=== PATIENT | female | born 1935 | race Caucasian/White ===

== ENCOUNTER 2019-08-25 14:56 | Inpatient (IN) | payer MEDICARE, MEDICAID ==
[~2019-08-25] VITALS: Ht 170.2 cm; Wt 87.1 kg
[2019-08-25] MEDS ORDERED: FLONASE ALLERG9.9 ML NAS (16:51)
[2019-08-25] MEDS ORDERED: LOSARTAN POTASS25 M1 PO (16:53)
[2019-08-25] MEDS ORDERED: LASIX20 MG PO (16:53)
[2019-08-25] MEDS ORDERED: PLAVIX75 M1 PO (16:56)
[2019-08-25] MEDS ORDERED: K-TAB20 MEQ PO (16:57)
[2019-08-25] MEDS ORDERED: PRAVACHOL40 MG PO (16:58)
[2019-08-25] MEDS ORDERED: ELIQUIS5 M1 PO (17:00)
[2019-08-25] MEDS ORDERED: NAMENDA-5 PO (17:01)
[2019-08-25] MEDS ORDERED: DEPAKOTE SPRIN125 MG PO (17:02)
[2019-08-25] MEDS ORDERED: SALINE NASAL SP88 ML NAS (17:03)
--- NOTE | 2019-08-25 19:24 | NUR ---
A 84, admitted VOLUNTARY BY POA to 3N, under the services of ANTOINE Covarrubias MD with a diagnosis of MAJOR DEPRESSION RECURRENT WITH PSYCHOTIC FEATURES Chief complaint is AGGRESSIVE TOWARDS STAFF AND RESIDENTS. Patient arrived via wheel chair from [facility] Initial assessment completed. Vital signs taken and recorded. ANTOINE COVARRUBIAS MD notified of admission to the unit. Orders received. See assessment for past medical history, medications and allergies. Patient oriented to unit. [facility] visitation policy reviewed. Clothing/patient valuable form completed. MARTHA ENCINAS
[2019-08-25 20:00] VITALS: BP 124/66
--- NOTE | 2019-08-25 21:51 | NUR ---
HOSPITALIST CALLED [phone], UPDATED ON NEW ADMISSION AND MED REC COMPLETE, READY FOR REVIEW. STATED TO PLACE CONSULT UNDER MIKE MICHAEL. NO OTHER ORDERS RECEIVED.
[2019-08-25 22:00] VITALS: BP 124/66
--- NOTE | 2019-08-26 04:36 | NUR ---
24 HR chart check completed.
--- NOTE | 2019-08-26 04:57 | NUR ---
PATIENT CONFUSED. UNABLE TO PROVIDE ASSESSMENT INFORMATION AND SIGN FORMS DUE TO COGNITION, SKIN ASSESSMENT COMPLETED. ALERT AND VERBAL. AT PRESENT WAS COOPERASTIVE WITH CARE. AMBULATORY AND CONTINENT.
--- NOTE | 2019-08-26 05:28 | NUR ---
PATIENT SLEPT MORE THAN 7 HOURS LAST NIGHT.
--- NOTE | 2019-08-26 06:48 | NUR ---
ADVISED DR MALONE THAT PT HAS VOMITED AGAIN EVEN AFTER RECEIVING IM PRN ZOFRAN PER DR MALONE MOVE THE PT TO MEDICAL FLOOR, MONITORED, DX:INTRACTABLE N/V AND ABD PAIN, DR. STEVENS. 0652- SPOKE WITH [facility] AND RECEIVED ORDERS TO CONTINUE ALL PSYCH MEDS BUT HOLD DEPAKOTE UNTIL SEEN BY MEDICAL. 0656- SPOKE WITH DR. MALONE AND ADVISED THAT MEDICAL MEDS NEED TO BE COMPLETED TO FINISH DISCHARGE. 58-SPOKE WITH 4TH FLOOR AND ADVISED THAT NURSE WILL CALL WHEN READY FOR PT TO BE BROUGHT UP.
[2019-08-26 07:34] LABS: BASO # 0.1 10*3/uL (0.0-0.1); BASO % 0.8 % (0.0-1.0); EOS # 0.2 10*3/uL (0.0-0.4); EOS % 2.6 % (1.0-4.0); HEMATOCRIT 39.9 % (37.0-47.0); HEMOGLOBIN 12.6 g/dl (12.0-16.0); LYMPH # 2.6 10*3/uL (1.3-4.4); LYMPH % 35.1 % (27.0-41.0); MEAN CELL VOLUME 91.5 fl (81.0-99.0); MEAN CORPUSCULAR HGB 28.9 pg (27.0-31.0); MEAN CORPUSCULAR HGB CONC 31.6 g/dl (33.0-37.0); MEAN PLATELET VOLUME 11.5 fl (9.6-12.3); MONO # 0.7 10*3/uL (0.1-1.0); MONO % 8.9 % (3.0-9.0); NEUT # 3.8 10*3/uL (2.3-7.9); NEUT % 52.3 % (47.0-73.0); PLATELET COUNT AUTOMATED 205 10*3/uL (130-400); RED BLOOD COUNT 4.36 10*6/uL (4.10-5.10); WHITE BLOOD COUNT 7.3 10*3/uL (4.8-10.8)
[2019-08-26 07:53] VITALS: BP 137/61
[2019-08-26 07:59] LABS: ALBUMIN 3.4 gm/dl (3.1-4.5); ALKALINE PHOSPHATASE 66 U/L (45-117); BUN 27 mg/dl (7-24); CHLORIDE 110 mmol/L (98-107); CHOLESTEROL 150 mg/dL (<200); CREATININE 0.97 mg/dL (0.55-1.02); HDL CHOLESTEROL 62 mg/dl (40-60); LDL CHOLESTEROL 76 mg/dL (9-159); POTASSIUM 4.2 mmol/L (3.5-5.1); SGOT/AST 23 IU/L (3-35); SGPT/ALT 19 U/L (12-78); SODIUM 143 mmol/L (136-145); TOTAL PROTEIN 6.9 gm/dL (6.4-8.2); TRIGLYCERIDES 61 mg/dl (<150); VLDL CHOLESTEROL 12 mg/dL (6-40)
--- NOTE | 2019-08-26 08:08 | NUR ---
DR. BLACKBURN ON UNIT TO ASSESS PT, UPDATE PROVIDED.
[2019-08-26 08:09] LABS: VALPROIC ACID (DEPAKENE) 76.3 ug/ml (50-100)
[2019-08-26 08:40] LABS: VITAMIN D, 25-HYDROXY 83.2 ng/mL (30-100)
[2019-08-26 10:08] LABS: BILIRUBIN NEGATIVE (NEGATIVE); BLOOD NEGATIVE (NEGATIVE); CLARITY SL CLOUDY (CLEAR); COLOR YELLOW (YELLOW); GLUCOSE NEGATIVE (NEGATIVE); KETONE TRACE (NEGATIVE); LEUKO ESTERASE 3+ (NEGATIVE); NITRITE NEGATIVE (NEGATIVE); SPECIFIC GRAVITY 1.025 (1.005-1.030); UROBILINOGEN 0.2 E.U./dl (0.2-1.0)
--- NOTE | 2019-08-26 10:14 | NUR ---
MSG LEFT FOR GALINA GUTIERREZ RE: PT NEW ADMISSION
[2019-08-26 10:42] LABS: WBC 31-40 wbc/hpf (0-5)
[2019-08-26 10:43] LABS: BACTERIA 1+; EPITHELIAL CELLS 21-30; RBC 0-2 rbc/hpf (0-2)
--- NOTE | 2019-08-26 10:54 | NUR ---
SPOKE WITH DR. MALONE AT [phone] RE: PT UA RESULTS AND PER HE WILL TAKE A LOOK.
--- NOTE | 2019-08-26 11:56 | NUR ---
AM GROUP/EXERCISE/MUSIC/GAME PT ATTENDED GROUP BUT UNABLE TO PARTICIPATE DUE TO LEVELS OF COGNITION. PT RELAXING NEXT TO MHW AND KEPT TO SELF. PT NEEDS ACTIVITY ASSESSMENT COMPLETED. THIS STAFF WILL COMPLETE ASSESSMENT TODAY AND WILL CONTINUE TO ENCOURAGED PT TO ATTEND AND PARTICIPATE IN FUTURE GROUP SESSIONS TO BEST OF PT ABILITY.
--- NOTE | 2019-08-26 12:50 | NUR ---
P: PT RESISITIVE WITH CARE, YELLING OUT WITH SHOWER, REQUIRING 2 STAFF ASSIST FOR CARE AT THIS TIME. PT ANXIOUS AT TIMES. I: PROVIDE EMOTIONAL SUPPORT AND 1:1 FOR PT TO VOICE FEELINGS, PROVIDE REDIRECTION, REAPPROACH NEEDED, UTILIZE 2 STAFF MEMBERS FOR CARE NEEDED. R: PT ALERT TO PERSON ONLY, CONFUSION AND SHORT TERM MEMORY DEFICITS NOTED PER PT BASELINE. PT CALM. PT MED COMPLIANT WITH MINIMAL DIFFICULTY. PT CALMED ONCE CARE COMPLETED. NO HALLUCINATIONS OR DELUSIONS NOTED AT THIS TIME. PT AMBULATORY THROUGHOUT UNIT, GAIT STEADY. PT CONTINENT OF BOWEL AND BLADDER, EPISODES OF INCONTINENCE NOTED, CARE PROVIDED NEEDED. NO SUICIDAL THOUGHTS OR BEHAVIORS NOTED. P: PROVIDE EMOTIONAL SUPPORT AND 1:1 FOR PT TO VOICE FEELINGS, ENCOURAGE MED COMPLIANCE, UTILIZE 2 STAFF MEMBERS FOR CARE NEEDED, REAPPROACH NEEDED. RE-ORIENT AND PRESENT REALITY NEEDED.
--- NOTE | 2019-08-26 15:52 | NUR ---
PM GROUP/MUSIC/CRAFTS PT CHOSE NOT TO ATTEND BUT TO REMAIN IN BED SLEEPING AT THIS TIME. PT WILL CONTINUE TO BE ENOCURAGED TO ATTEND FUTURE GROUP SESSIONS AND PARTICIPATE TO BEST OF ABILITY.
--- NOTE | 2019-08-26 16:41 | NUR ---
STAFF ENTERED PT ROOM TO TOILET HER AND GET HER UP FOR DINNER AND OBSERVED HER TO HAVE A SMALL EMESIS OF UNDIGESTED FOOD. PT ALSO INCONTINENT OF BOWEL AND BLADDER. STAFF PROVIDED INCONTINENCE CARE. WILL CONTINUE TO MONITOR PT AND UPDATE
--- NOTE | 2019-08-26 16:48 | NUR ---
ATTEMPTED TO CONTACT DR. BLACKBURN'S TEAM AT [phone], NO ANSWER WILL TRY AGAIN.
--- NOTE | 2019-08-26 17:02 | NUR ---
PT HAD SECOND EMESIS OF UNDIGESTED FOOD. DR. MALONE RETURNED CALL AND UPDATED ON PT HAVING 2 SMALL EMESIS OF UNDIGESTED FOOD AND [address] MALONE HE WILL TAKE A LOOK AT HER CHART AND ORDER SOMETHING.
--- NOTE | 2019-08-26 17:27 | NUR ---
SPOKE WITH DR MALONE AT [phone] RE: PT VOMITING X4 TIMES. PER DR. MALONE PUT IN AN ORDER FOR ZOFRAN 4MG PO Q6H PRN FOR NAUSEA AND VOMITING. CONVERSATION WITNESSED BY 2ND RN VINEET JENSEN.
--- NOTE | 2019-08-26 17:27 | NUR ---
PSYCHOSOCIAL HX COMPLETED THIS DATE, CLIENT IS A POOR HISTORIAN.
--- NOTE | 2019-08-26 17:55 | NUR ---
SPOKE WITH DR KIRA YOUNGED THAT PT HAD ANOTHER EMESIS, VOMITING UP THE ZOFRAN AND IS PALE IN COLOR AT THIS TIME. PER . CHANGE ZOFRAN TO IM AND HE WILL BE UP TO SEE HER.
--- NOTE | 2019-08-26 17:57 | NUR ---
DR MALONE ON UNIT TO ASSESS PT, UPDATE PROVIDED.
--- NOTE | 2019-08-26 18:11 | NUR ---
IM ZOFRAN ADMINISTERED PER DR. MALONE'S ORDERS. PER DR. MALONE IF IM ZOFRAN IS INEFFECTIVE PLEASE CALL HIM. WILL CONTINUE TO MONITOR PT
--- NOTE | 2019-08-26 18:13 | NUR ---
LAB ON UNIT FOR LAB DRAW. PT TOLERATED WITHOUT ISSUE.
--- NOTE | 2019-08-26 18:20 | NUR ---
SPOKE WITH JULIAN AT [facility] TO INQUIRE IF THERE ARE ANY ISSUES AT THE FACILITY WITH VOMITING AND DIARRHEA. PER NURSE, THEY HAVE NOT HAD ANY ISSUES RECENTLY AND THIS IS OUT OF CHARACTER FOR THE PT.
--- NOTE | 2019-08-26 18:34 | NUR ---
SPOKE WITH EKG AND ADVISED THAT I HAVE STAT EKG ORDER FOR THIS PT, PER CLAY HE IS ON HIS WAY TO ER FOR ONE AND HE WILL BE RIGHT UP.
--- NOTE | 2019-08-26 18:37 | NUR ---
DR. MALONE CALLED FOR UPDATE, ADVISED THAT PT RECEIVED IM ZOFRAN AND OF RIGHT NOW, HAS HAD NO FURTHER EMESIS. PER DR. MALONE UPDATE HIM IF THERE ARE FURTHER ISSUES. WILL CONTINUE TO MONITOR PT.
[2019-08-26 18:39] LABS: BUN 28 mg/dl (7-24); CHLORIDE 112 mmol/L (98-107); CREATININE 0.95 mg/dL (0.55-1.02); LIPASE 79 U/L (73-393); POTASSIUM 3.7 mmol/L (3.5-5.1); SODIUM 143 mmol/L (136-145); TROPONIN I < 0.015 ng/ml (<0.045)
--- NOTE | 2019-08-26 18:44 | NUR ---
DR. YU ANSWERING FOR DR. MALONE ADVISED THAT PT SOME OF PTS LABS ARE IN FOR REVIEW. PER DR. YU HE WILL LET DR. MALONE KNOW.
[2019-08-26] MEDS ORDERED: EXELON13.3 MG/21 TD (18:54)
[2019-08-26] MEDS ORDERED: CELEXA10 MG PO (18:55)
[2019-08-26] MEDS ORDERED: NAMENDA-5 PO (18:55)
--- NOTE | 2019-08-26 19:03 | NUR ---
MESSAGE LEFT FOR POA AND ADVISED THAT PT IS BEING MOVED TO THE MEDICAL UNIT FOR NAUSEA AND VOMITING. SHE CAN CALL THE U FOR FURTHER INFO OR THE 4TH FLOOR FOR AN UPDATE.
--- NOTE | 2019-08-26 19:39 | NUR ---
PT DISCHARGED TO [facility], ESCORTED BY 2 [facility]. PT OFF THE FLOOR AT 1927. NURSE TO NURSE REPORT GIVEN TO FREDY.
== END 2019-08-26 19:11 | disposition short-term general hospital (02) | DRG 885 ==
LOC: 3N 14:56
PROVIDERS: Internal Medicine; ADMIT Psychiatry & Neurology Psychiatry
DX: F33.3 Major depressive disorder, recurrent, severe with psychotic symptoms (principal); I50.22 Chronic systolic (congestive) heart failure; I25.10 Atherosclerotic heart disease of native coronary artery without angina pectoris; I11.0 Hypertensive heart disease with heart failure; E03.9 Hypothyroidism, unspecified; I48.91 Unspecified atrial fibrillation; G30.9 Alzheimer's disease, unspecified; F02.80 Dementia in other diseases classified elsewhere, unspecified severity, without behavioral disturbance, psychotic disturbance, mood disturbance, and anxiety; E78.5 Hyperlipidemia, unspecified; I25.5 Ischemic cardiomyopathy; E55.9 Vitamin D deficiency, unspecified; H91.13 Presbycusis, bilateral; Z95.1 Presence of aortocoronary bypass graft; Z79.01 Long term (current) use of anticoagulants; Z79.899 Other long term (current) drug therapy; Z95.5 Presence of coronary angioplasty implant and graft; Z86.73 Personal history of transient ischemic attack (TIA), and cerebral infarction without residual deficits; Z85.828 Personal history of other malignant neoplasm of skin; Z88.8 Allergy status to other drugs, medicaments and biological substances; Z80.9 Family history of malignant neoplasm, unspecified; Z82.49 Family history of ischemic heart disease and other diseases of the circulatory system

== ENCOUNTER 2019-08-26 19:03 | Inpatient (IN) | payer MEDICARE, MEDICAID ==
[~2019-08-26] VITALS: Ht 170.1 cm; Wt 86.7 kg
[~2019-08-26 19:03] MED LIST: CELEXA10 MG PO; DEPAKOTE SPRIN125 MG PO; ELIQUIS5 M1 PO; EXELON13.3 MG/21 TD; FLONASE ALLERG9.9 ML NAS; K-TAB20 MEQ PO; LASIX20 MG PO; LOSARTAN POTASS25 M1 PO; NAMENDA-5 PO; PLAVIX75 M1 PO; PRAVACHOL40 MG PO; SALINE NASAL SP88 ML NAS
[2019-08-26 19:30] VITALS: BP 153/73
--- NOTE | 2019-08-26 19:30 | NUR ---
A 84, admitted to , under the services of FLORES Landa DO with a diagnosis of ABDOMINAL PAIN,NAUSEA,VOMITING. Chief complaint is NAUSEA AND VOMITING. Patient arrived via bed from [place]. Monitor applied. Initial assessment completed. Vital signs taken and recorded. FLORES LANDA DO notified of admission to the unit. Orders received. See assessment for past medical history, medications and allergies. Patient and/or family oriented to unit. [facility] visitation policy reviewed. Clothing/patient valuable form completed. FREDY NEWTON
--- NOTE | 2019-08-26 22:30 | NUR ---
IV started left antecubital with #22 protective cath after 0 attempts. Site prepped with Chloroprep. Sterile dressing applied. Patient tolerated procedure well. IV infusing at 100 cc/hr. FREDY NEWTON
--- NOTE | 2019-08-26 23:59 | NUR ---
PT RESTING IN BED AT THIS TIME. RESPIRATIONS EASY AND UNLABORED ON ROOM AIR. NO S/S DISTRESS NOTED. NO S/S OF N/V AT THIS TIME. WILL CONTINUE TO MONITOR. CALL LIGHT IN REACH.
[2019-08-27] VITALS: BP 159/87
--- NOTE | 2019-08-27 04:54 | NUR ---
24 HR chart check completed.
[2019-08-27 06:42] LABS: BASO % 0.3 % (0.0-1.0); HEMATOCRIT 39.7 % (37.0-47.0); HEMOGLOBIN 12.7 g/dl (12.0-16.0); LYMPH # 1.5 10*3/uL (1.3-4.4); LYMPH % 13.6 % (27.0-41.0); MEAN CELL VOLUME 92.3 fl (81.0-99.0); MEAN CORPUSCULAR HGB 29.5 pg (27.0-31.0); MEAN PLATELET VOLUME 11.7 fl (9.6-12.3); MONO # 0.5 10*3/uL (0.1-1.0); MONO % 4.8 % (3.0-9.0); NEUT % 80.8 % (47.0-73.0); PLATELET COUNT AUTOMATED 199 10*3/uL (130-400); WHITE BLOOD COUNT 11.1 10*3/uL (4.8-10.8)
--- NOTE | 2019-08-27 06:55 | NUR ---
PT RESTING IN BED. RESPIRATIONS EASY AND UNLABORED ON ROOM AIR. POX WNL. IV FLUIDS INFUSING PER ORDERS. IV SITE IS PATENT. DRESSING C/D/I. WILL CONTINUE TO MONITOR. CALL LIGHT IN REACH.
[2019-08-27 07:11] LABS: BUN 24 mg/dl (7-24); CHLORIDE 112 mmol/L (98-107); CREATININE 0.77 mg/dL (0.55-1.02); PHOSPHOROUS 3.6 mg/dL (2.5-4.9); POTASSIUM 4.1 mmol/L (3.5-5.1); SODIUM 144 mmol/L (136-145)
--- NOTE | 2019-08-27 07:47 | NUR ---
24 HR chart check completed.
[2019-08-27 08:00] VITALS: BP 149/75
[2019-08-27 12:00] VITALS: BP 151/77
--- NOTE | 2019-08-27 13:47 | NUR ---
Spoke with Faustina regarding U consult.
--- NOTE | 2019-08-27 14:29 | NUR ---
Patient is refusing to drink oral contrast.
--- NOTE | 2019-08-27 14:38 | NUR ---
Notified Dr. Dooley of patients refusal to drink contrast and my many failed attempts. Per physician CT scan will be done with out contrast. CT was notified.
[2019-08-27 16:00] VITALS: BP 133/59
--- NOTE | 2019-08-27 17:29 | NUR ---
Patients daughter got her to eat a popsicle.
--- NOTE | 2019-08-27 18:15 | NUR ---
Patients daughter said she ate 1/2 jello, small amount of sherbert and drank her coke. Patient tolerated well. No c/o nausea/vomitting.
--- NOTE | 2019-08-27 19:41 | NUR ---
PATIENT RESTING IN BED WATCHING TV. REORIENTED TO TIME AND PLACE. IV INFUSING PER ORDER. BED IN LOWEST POSITION, BED ALARM ON, CALL LIGHT IN REACH
[2019-08-27 20:00] VITALS: BP 149/56
[2019-08-28] VITALS: BP 150/48
[2019-08-28 06:31] LABS: BASO # 0.1 10*3/uL (0.0-0.1); BASO % 0.6 % (0.0-1.0); EOS # 0.1 10*3/uL (0.0-0.4); EOS % 0.9 % (1.0-4.0); HEMATOCRIT 36.9 % (37.0-47.0); HEMOGLOBIN 11.5 g/dl (12.0-16.0); LYMPH # 2.6 10*3/uL (1.3-4.4); LYMPH % 24.7 % (27.0-41.0); MEAN CELL VOLUME 93.7 fl (81.0-99.0); MEAN CORPUSCULAR HGB 29.2 pg (27.0-31.0); MEAN CORPUSCULAR HGB CONC 31.2 g/dl (33.0-37.0); MEAN PLATELET VOLUME 11.6 fl (9.6-12.3); MONO # 1.1 10*3/uL (0.1-1.0); MONO % 10.2 % (3.0-9.0); NEUT # 6.6 10*3/uL (2.3-7.9); NEUT % 63.3 % (47.0-73.0); PLATELET COUNT AUTOMATED 178 10*3/uL (130-400); RED BLOOD COUNT 3.94 10*6/uL (4.10-5.10); RED CELL DISTRI WIDTH 14.1 % (0-14.5); WHITE BLOOD COUNT 10.5 10*3/uL (4.8-10.8)
[2019-08-28 06:40] LABS: ALBUMIN 3.1 gm/dl (3.1-4.5); ALKALINE PHOSPHATASE 59 U/L (45-117); BUN 24 mg/dl (7-24); CHLORIDE 115 mmol/L (98-107); CREATININE 0.95 mg/dL (0.55-1.02); POTASSIUM 3.6 mmol/L (3.5-5.1); SGOT/AST 27 IU/L (3-35); SGPT/ALT 24 U/L (12-78); SODIUM 148 mmol/L (136-145); TOTAL PROTEIN 6.4 gm/dL (6.4-8.2)
[2019-08-28 08:00] VITALS: BP 144/86
--- NOTE | 2019-08-28 08:30 | NUR ---
PATIENT AWAKE, ALERT, ORIENTED. DENIES ANY NEEDS AT THIS TIME. NPO FOR US LIVER. DENIES NAUSEA/VOMITING THIS AM. LUNGS CLEAR. ROOM AIR. ABD SOFT & NONTENDER. CALL LIGHT IS WITHIN REACH.
[2019-08-28 12:00] VITALS: BP 135/55
--- NOTE | 2019-08-28 13:04 | NUR ---
PT UNABLE TO ANSWER QUESTIONS, NO FAMILY AT BEDSIDE. PT WAS ADMITTED FROM U TO MEDICAL SIDE. PT IS FROM [facility]. WILL CONTINUE TO FOLLOW.
--- NOTE | 2019-08-28 13:45 | NUR ---
SPEECH PATHOLOGY Orders for swallowing evaluation received however since that time patient has been transferred to the medical floor with abdominal pain, nausea and vomiting. New orders will need to be obtained for swallowing eval. to be completed. Thank you for this referral. [facility]
[2019-08-28] MEDS ORDERED: METRONIDAZOLE500 M1 PO (15:06)
[2019-08-28] MEDS ORDERED: CIPROFLOXACIN250 MG PO (15:06)
[2019-08-28] MEDS ORDERED: ZOFRAN4 MG PO (15:06)
--- NOTE | 2019-08-28 15:37 | NUR ---
MARY ANN notified of discharge. MARY ANN spoke with [facility] [place] patient is a bedhold. Patient is able to return. Risk Control Consultant Gerri spoke with daughter lamar who stated she would contact her sister Niecy to transport the patient back to [facility]. MARY ANN notified RICHARD Trammell of this. -MARY ANN Sanchez
--- NOTE | 2019-08-28 15:41 | NUR ---
Son-in-law to transport patient back to [facility] in an hour and a half. machine load clerk notified.
[2019-08-28 16:00] VITALS: BP 133/59
--- NOTE | 2019-08-28 17:45 | NUR ---
Discharge instructions reviewed with patient/family. Patient receptive and verbalizes understanding. Follow-up care arranged. Written instructions given to patient/family. PICKED UP BY FAMILY MEMBER AND TRANSPORTED BY PRIVATE CAR TO [facility]. JADA SALDANA. ABHINAV SHAY
--- NOTE | 2019-08-28 18:01 | NUR ---
CALLED AND GAVE REPORT TO RECEIVING NURSE;
== END 2019-08-28 18:50 | DRG 392 ==
LOC: 5E 19:03 → 4E 19:03 → 5E 19:03
PROVIDERS: Internal Medicine; ADMIT Internal Medicine
DX: K52.9 Noninfective gastroenteritis and colitis, unspecified (principal); I50.22 Chronic systolic (congestive) heart failure; F33.3 Major depressive disorder, recurrent, severe with psychotic symptoms; R63.0 Anorexia; I25.5 Ischemic cardiomyopathy; R41.9 Unspecified symptoms and signs involving cognitive functions and awareness; I11.0 Hypertensive heart disease with heart failure; E78.5 Hyperlipidemia, unspecified; E03.9 Hypothyroidism, unspecified; Z66 Do not resuscitate; Z51.5 Encounter for palliative care; H91.13 Presbycusis, bilateral; G30.9 Alzheimer's disease, unspecified; F02.80 Dementia in other diseases classified elsewhere, unspecified severity, without behavioral disturbance, psychotic disturbance, mood disturbance, and anxiety; E87.8 Other disorders of electrolyte and fluid balance, not elsewhere classified; E83.41 Hypermagnesemia; I48.91 Unspecified atrial fibrillation; Z95.0 Presence of cardiac pacemaker; Z95.1 Presence of aortocoronary bypass graft; Z85.828 Personal history of other malignant neoplasm of skin; Z95.5 Presence of coronary angioplasty implant and graft; Z82.49 Family history of ischemic heart disease and other diseases of the circulatory system; Z80.8 Family history of malignant neoplasm of other organs or systems; Z88.8 Allergy status to other drugs, medicaments and biological substances; Z79.899 Other long term (current) drug therapy; Z79.02 Long term (current) use of antithrombotics/antiplatelets; Z68.29 Body mass index [BMI] 29.0-29.9, adult